=== PATIENT | male | born 1995 | race Two or more races ===

== ENCOUNTER → 2019-12-28 | Emergency (ER) | payer OTHER ==
[~2019-12-28] VITALS: Ht 180.3 cm; Wt 108.0 kg
[~2019-12-28] MED LIST: IBUPROFEN600 M1 ORAL; TYLENOL EXTRA500 MG ORAL
[2019-12-28 10:55] VITALS: BP 134/75
--- NOTE | 2019-12-28 11:02 | Emergency Room Report ---
History of Present Illness General Chief Complaint: Upper Extremity Injury Source: Patient Present Illness HPI Disclaimer: Please note that this report is being documented using DRAGON technology. This can lead to erroneous entry secondary to incorrect interpretation by the dictating instrument. HPI: [id number] male presents for evaluation of left wrist and hand pain. Symptoms began yesterday morning. He awoke with a stiffness in his right hand and finger. Difficulty extending the wrist and middle finger. He feels a tightness in the upper arm when he does this. Does not remember any new injury, fall, strenuous activity. Denies numbness, tingling. No swelling. Has not taken anything for pain or inflammation. Has not followed up with PMD. No prior history of injury to the hand or wrist PMH: Reviewed PSH: Reviewed Allergies: Reviewed Social Hx: Reviewed Allergies: Coded Allergies: No Known Allergies (Unverified , 12/28/19) COVID-19 Screening Contact w/high risk pt: No Experienced COVID-19 symptoms?: No COVID-[address] [employer]PERVISOR: No Nursing Documentation-PMH Past Medical History: No History, Except For History Of Psychiatric Problem: Yes Review of Systems All Other Systems: negative except mentioned in HPI Physical Exam Vital Signs Date Time Temp Pulse Resp B/P (MAP) Pulse Ox O2 Delivery O2 Flow Rate FiO2 12/28/19 10:42 99.0 71 16 134/75 (94) 99 Room Air General: Awake and alert, no acute distress HEENT: NC/AT. EOMI. Resp: Normal work of breathing Skin: Intact. No abrasions, laceration or rash over the exposed skin MSK: Normal tone and bulk. Moving all extremities. No obvious deformity. Mild limitation to extension of the wrist and middle finger with active range of motion testing though passive is full range of motion though does elicit some pain. No tenderness over the anatomic snuffbox. No deformity. No edema. No tenderness in the wrist or forearm. Full range of motion of the elbow without swelling or tenderness. Neuro: Awake and alert. Mentating appropriately Medical Decision Making Diagnostic Impression: Primary Impression: Wrist pain ER Course This a 24-year-old male presenting for evaluation of atraumatic left wrist and hand pain. Differential includes is not limited to ligamentous strain, strain, carpal tunnel like syndrome, overuse injury, arthritis. Low suspicion for acute fracture or dislocation as the patient has had no trauma, no swelling full range of motion. Will place in a splint for comfort and stability and discharged on N SAIDs. Follow-up with PMD for referral to orthopedic surgery if symptoms persist. Instructed to return with new or worsening symptoms. Last Vital Signs Date Time Temp Pulse Resp B/P (MAP) Pulse Ox O2 Delivery O2 Flow Rate FiO2 12/28/19 10:42 99.0 71 16 134/75 (94) 99 Room Air Disposition: HOME, SELF-CARE Condition: Stable Scripts Ibuprofen* (MOTRIN*) 600 Mg Tablet 600 MG ORAL Q8H PRN for FOR PAIN, #30 TAB 0 Refills Prov: Jared Echavarria MD 12/28/19 Acetaminophen* (TYLENOL EXTRA STRENGTH*) 500 Mg Tablet 500 MG ORAL Q8H PRN for Prn Headache/Temp > 101, #30 TAB 0 Refills Prov: Jared Echavarria MD 12/28/19 Referrals: [facility] Open 24 hour /7 days a week by Appointment Only [address] [facility] [address] Patient Instructions: Carpal Tunnel Syndrome, Wrist Pain Additional Instructions: Wear the splint provided for comfort and stability. Use the Tylenol and Motrin as provided for pain and inflammation. Follow-up with your doctor if symptoms fail to improve and asked for referral to orthopedic surgery. Return with new or worsening symptoms. Jared Echavarria MD Dec 28, 2019 11:02
[2019-12-28 11:03] VITALS: BP 136/70
--- NOTE | 2019-12-28 11:03 | NUR ---
ER DISCHARGE NOTE: Patient is cleared to be discharged per ERMD, pt is aox4, on room air, with stable vital signs. pt was given dc and prescription instructions, pt was able to verbalize understanding, pt id band removed. pt is able to ambulate with steady gait. pt took all belongings.
--- NOTE | 2019-12-28 11:06 | NUR ---
ED Nurse Note: hand splint applied by emt on the LT hand.
== END | disposition home or self-care (01) ==
LOC: EMR 10:45
DX: M25.532 Pain in left wrist (principal); M25.542 Pain in joints of left hand; M25.641 Stiffness of right hand, not elsewhere classified
CPT/HCPCS: 29125; Z7502; 99283